=== PATIENT | female | born 1940 ===

== ENCOUNTER 2022-08-24 09:44 | Emergency (ER) | payer MEDICAID, SELFPAY ==
[2022-08-24 09:50] VITALS: BMI 20.1
[2022-08-24 09:54] VITALS: BP 184/94; PULSE 66; RESP 16; O2SAT 98
--- NOTE | 2022-08-24 10:07 | ECG_ITS ---
[facility] Test Date: 2022-08-24 Pat Name: Nicolette Musa Department: Room: Gender: Female Research Assistant Member: : 1940 Requested By: Hunter Smith Order Number: [id number] Portia MD: Ezequiel Warren M.D. Measurements Intervals [place] Rate: 73 P: 77 OR: 136 QRS: 72 QRSD: 89 T: 75 QT: 389 QTc: 430 Interpretive Statements SINUS RHYTHM POSSIBLE LEFT ATRIAL ENLARGEMENT [-0.1mV P-WAVE IN V1/V2] No previous ECG available for comparison Electronically Signed On 08-24-2022 11:06:46 CDT by Ezequiel Warren M.D. [id number]
[2022-08-24] MEDS: hyDRALAzine 20 mg/mL INJ 1 mL 10 MG IVP (10:23)
[2022-08-24] MEDS: enalaprilat 1.25 mg/mL Inj IVP (10:24)
[2022-08-24 10:36] LABS: Basophils % 0.4 %; Eosinophils # 0.1 10^3/uL (0.0-0.8); Eosinophils % 1.3 %; Hematocrit 45.5 % (37.0-47.0); Lymphocytes # 1.5 10^3/uL (0.8-4.8); Lymphocytes % 28.9 %; Mean Corpuscular Hemoglobin 30.7 pg (28.0-34.0); Mean Platelet Volume 10.9 fL (7.4-10.4); Monocytes # 0.4 10^3/uL (0.2-0.9); Monocytes % 7.4 %; Neutrophils # 3.26 10^3/uL (1.8-7.7); Neutrophils % 61.6 %; Nucleated Red Blood Cells % 0 %; Platelet Count 216 10^3/cmm (130-400); Red Blood Count 4.89 10^6/uL (4.1-5.3); Red Cell Distribution Width 12.2 % (12.1-15.1); White Blood Count 5.3 10^3/uL (4.0-10.0)
--- NOTE | 2022-08-24 10:37 | W.ED.GENADLT ---
HPI - General Adult General: Chief complaint: General Medical Stated complaint: high BP, headache Time Seen by Provider: 08/24/22 09:44 Source: patient and family Mode of arrival: ambulatory History of Present Illness: 82-year-old female presents emergency room with a family member. She complaining lightheadedness and dizziness elevated blood pressure. She is not able to speak [place] but her daughter is at the bedside and wishes to treat translate for her. She denies any chest pain abdominal pain or shortness of breath no recent falls no head trauma she is not on any anticoagulants she is not on any antihypertensive she is on medications for her eye in the form of some drops that has not changed recently. No recent cough or cold remedies or decongestants or nasal sprays. No focal neurologic deficits other than headaches and the dizziness no weakness no difficulty speech swallowing or gait. Onset (ago): hour(s) Location: head Severity: moderate Quality: aching Pain Consistency: constant Relieving factors: none Exacerbating factors: none Associated symptoms: Reports headache(s) and nausea; Deny chest pain, confusion, cough, diaphoresis, decreased appetite, dyspnea, fevers/chills, malaise, rash, palpitations, seizures, short of breath, syncope, vomiting or weakness Treatments prior to arrival: none Review of Systems Const: Reports: fatigue; Denies: fever(s), chills, malaise or diaphoresis ENMT: Denies: throat pain, ear or mastoid pain, nasal discharge or nasal congestion Card: Denies: chest pain, palpitations or syncope Resp: Denies: dyspnea GI: Reports: nausea; Denies: abdominal pain or vomiting : Denies: flank pain, difficulty voiding, dysuria, urinary frequency or urinary urgency Musc: Denies: neck pain or back pain Skin/Breast: Denies: rash Neuro: Reports: headache(s); Denies: confusion PFSH ED PFSH: Medical History (Updated 08/25/22 @ 15:49 by Hunter Pool DO) HTN (hypertension) Social History (Updated 08/25/22 @ 15:49 by Hunter Pool DO) Smoking and tobacco status: never smoked Alcohol intake: never Physical Exam Const: COMMON NORMALS: no acute distress GENERAL APPEARANCE: cooperative and comfortable ORIENTATION/CONSCIOUSNESS: Yes awake, Yes oriented to person, Yes oriented to place and Yes oriented to time HENMT: COMMON NORMALS: normocephalic, atraumatic, hearing grossly normal bilaterally, external ears normal, EAC's normal, TM's normal bilaterally, Normal nasal mucous membranes and turbinates present, moist oral mucous membranes and oropharynx normal HEAD & SCALP: normocephalic and atraumatic NOSE: Normal nasal mucous membranes and turbinates present EXTERNAL EAR: Yes external ears normal EXTERNAL AUDITORY CANAL: EAC's normal TYMPANIC MEMBRANE: TM's normal bilaterally Eye: COMMON NORMALS: Equal, round and reactive pupils present, EOMs intact bilaterally, conjunctivae normal and no scleral icterus CONJUNCTIVA: Yes conjunctivae normal PUPIL: Yes Equal, round and reactive pupils present Resp: COMMON NORMALS: normal respiratory effort, No retractions, No use of accessory muscles and clear to auscultation bilaterally AUSCULTATION: clear to auscultation bilaterally Cardio: COMMON NORMALS: regular rate, regular rhythm and No murmurs present (Cardio) RATE: regular rate RHYTHM: regular rhythm GI: COMMON NORMALS: Soft to palpation and No hepatosplenomegaly present AUSCULTATION: Yes normoactive bowel sounds PALPATION: Yes Soft to palpation, No Tenderness to palpation present (GI), No Guarding due to palpation present (GI) and Yes No hepatosplenomegaly present Extremity: COMMON NORMALS: normal to inspection, capillary refill normal, no clubbing, cyanosis or edema, no calf tenderness and no pedal edema Neuro: SENSORIUM/ORIENTATION: Yes oriented to person, Yes oriented to place and Yes oriented to time Skin: COMMON NORMALS: no rashes or lesions noted GENERAL SKIN EXAM: no rashes or lesions noted Course Vital Signs: Vital signs: Vital Signs Pulse Rate 77 08/24/22 13:03 Respiratory Rate 18 08/24/22 11:50 Blood Pressure 117/66 08/24/22 13:03 Pulse Oximetry 98 08/24/22 13:03 Oxygen Delivery Me thod 08/24/22 09:54 [facility] - General Adult Medical Decision Making Labs imaging EKG reviewed there is no evidence of any focal neurologic deficits and think her headache is driven largely by the blood pressure. We did lower blood pressure and that significantly improved her symptoms. She is feeling much better. We will start her on amlodipine 5 mg daily and lisinopril 10 mg daily have her follow-up with her primary care doctor within the next week to reevaluate her blood pressure has any worsening or change symptoms return to the emergency room. Medical Records I reviewed the patient's medical records. Lab Data I reviewed the patient's lab results. : 08/24/22 10:08/24/22 10:[address] 08/24/22 10:38 IMPRESSION: 1. No evidence of intracranial hemorrhage or mass effect. 2. Mild small vessel changes. Moderate parenchymal volume loss. 3. No acute intracranial findings. Laboratory Results WBC 5.3 10^3/uL (4.0-10.0) 08/24/22 10: RBC 4.89 10^6/uL (4.1-5.3) 08/24/22 10: Hgb 15.0 g/dL (11.5-15.3) 08/24/22 10: Hct 45.5 % (37.0-47.0) 08/24/22 10: MCV 93.0 fl (81-99) 08/24/22 10: MCH 30.7 pg (28.0-34.0) 08/24/22 10: MCHC 33.0 g/dL (30.0-36.0) 08/24/22 10: RDW 12.2 % (12.1-15.1) 08/24/22 10: Plt Count 216 10^3/cmm (130-400) 08/24/22 10: MPV 10.9 fL (7.4-10.4) H 08/24/22 10:28 Neut % (Auto) 61.6 % 08/24/22 10:28 Lymph % (Auto) 28.9 % 08/24/22 10:28 [place] % (Auto) 7.4 % 08/24/22 10:28 Eos % (Auto) 1.3 % 08/24/22 10: Baso % (Auto) 0.4 % 08/24/22 10: Neut # (Auto) 3.26 10^3/uL (1.8-7.7) 08/24/22 10:28 Lymph # (Auto) 1.5 10^3/uL (0.8-4.8) 08/24/22 10:28 [place] # (Auto) 0.4 10^3/uL (0.2-0.9) 08/24/22 10:28 Eos # (Auto) 0.1 10^3/uL (0.0-0.8) 08/24/22 10:28 Baso # (Auto) 0.0 10^3/uL (0.0-0.1) 08/24/22 10:28 Nucleated RBC % (auto) 0 % 08/24/22 10:28 Nucleated RBCs # 0.0 /100WBC 08/24/22 10:28 Sodium 140 mmol/L (136-145) 08/24/22 10:28 Potassium 3.9 mmol/L (3.5-5.1) 08/24/22 10:28 Chloride 104 mmol/L (98-107) 08/24/22 10:28 Carbon Dioxide 26 mmol/L (22-29) 08/24/22 10:28 Anion Gap 13.9 (5-19) 08/24/22 10:28 BUN 16 mg/dL (8-23) 08/24/22 10:28 Creatinine 0.5 mg/dL (0.5-0.9) 08/24/22 10:28 GFR Calculation Not Reportable 08/24/22 10:28 Glucose 94 mg/dL (65-115) 08/24/22 10:28 Calculated Osmolality 291 mOsm/kg (285-295) 08/24/22 10:28 Calcium 9.8 mg/dL (8.5-10.5) 08/24/22 10:28 Discharge Plan Discharge Clinical Impression: HTN (hypertension) Prescriptions: New amlodipine 5 mg tablet 5 mg PO DAILY Qty: 30 0RF lisinopril 10 mg tablet 10 mg PO DAILY Qty: 30 0RF No Action dorzolamide-timolol 22.3-6.8 mg/mL drops 1 drp ophthalmic (eye) BID Discharge Orders: Discharge ED (Routine); Ordered 08/24/22 Ordered By: Hunter Pool Discharge Diet: Usual diet Discharge Activity: Increase activity as tolerated Patient Instructions: Opioid Safety, Pain Management Activity Restrictions/Additional Instructions: Recheck with your primary care doctor within the week to reevaluate your blood pressure. If any worsening or change symptoms return to the emergency room Coding Level of Care Code ED Stem Processing Machine Operator for Chg Antoni
--- NOTE | 2022-08-24 10:38 | CT_ITS ---
WS: [id number] CT HEAD TECHNIQUE: Noncontrast CT of the head obtained from the skullbase to the vertex. CLINICAL INFORMATION: Dizziness headache hypertension COMPARISON: None. DLP: 874.[address] scans at [facility] use at least one of these dose optimization techniques: automated e xposure control; mA and/or kV adjustment per patient size (includes targeted exams where dose is matc hed to clinical indication); or iterative reconstruction. FINDINGS: No evidence of intracranial hemorrhage or mass effect. Ventricular system and basal cisterns are suarez nt. Mild small vessel changes with moderate parenchymal volume loss. No extra-axial fluid collections . No evidence of mass or mass effect. Intracranial vascular calcification. Paranasal sinuses and mastoid air cells are well aerated. Retention cysts in the sphenoid sinus. .Nor mal visualized soft tissues. CT/CT head wo con* [id number] IMPRESSION: 1. No evidence of intracranial hemorrhage or mass effect. 2. Mild small vessel changes. Moderate parenchymal volume loss. 3. No acute intracranial findings.
--- NOTE | 2022-08-24 11:04 | PC.NURSE ---
PT PLACED ON CONTINUOUS NIBP, SPO2, AND CM
[2022-08-24 11:08] LABS: Blood Urea Nitrogen 16 mg/dL (8-23); Calcium 9.8 mg/dL (8.5-10.5); Carbon Dioxide 26 mmol/L (22-29); Chloride 104 mmol/L (98-107); Creatinine Clr Calc Pharmacy 42.8105; Glucose 94 mg/dL (65-115); Osmolality Calculated 291 mOsm/kg (285-295); Sodium 140 mmol/L (136-145)
[2022-08-24 11:36] LABS: Anion Gap 13.9 (5-19)
[2022-08-24 11:37] LABS: Potassium 3.9 mmol/L (3.5-5.1)
[2022-08-24 11:50] VITALS: BP 119/61; PULSE 71; RESP 18; O2SAT 99
[2022-08-24 13:03] VITALS: BP 117/66; PULSE 77; O2SAT 98
== END 2022-08-24 13:04 | disposition home or self-care (01) ==
PROVIDERS: Emergency Provider Family Medicine
DX: I10 Essential (primary) hypertension (principal)
CPT/HCPCS: 70450; 80048; 85025; 93005; 96374; 96375; 99285; J0360; J3490

== ENCOUNTER 2023-04-24 07:19 | Emergency (ER) | payer MEDICAID, SELFPAY ==
[2023-04-24 07:29] VITALS: BP 205/121; PULSE 68; RESP 14; TEMP 36.7; O2SAT 98; BMI 20.1
--- NOTE | 2023-04-24 07:39 | ED_ITS ---
HPI - General Adult General: Chief complaint: Recheck/Abnormal Lab/Rx Stated complaint: high blood pressure Time Seen by Provider: 04/24/23 07:27 Source: patient Mode of arrival: ambulatory History of Present Illness: 83-year-old female presents emergency room with report of elevated blood pressure. She is on lisinopril 10 mg daily and amlodipine 5 mg daily. She has not been taking these regularly. Still difficult to get from her or her daughter when the last time she took someone's. They think maybe she took the lisinopril yesterday. She states the amlodipine made her not feel well. She has not any difficulty speech swallowing gait vision etc. He has had some dizziness denies headache no chest pain. Patient only speaks Swedish and her daughter is at the bedside and wishes to interpret for her. Onset (ago): day(s) (2) Relieving factors: none Exacerbating factors: none Associated symptoms: Deny chest pain, confusion, cough, diaphoresis, decreased appetite, dyspnea, fevers/chills, headache(s), malaise, nausea, rash, palpitations, seizures, short of breath, syncope, vomiting or weakness Review of Systems Const: Denies: fever(s), chills, malaise or diaphoresis Card: Denies: chest pain, palpitations or syncope Resp: Denies: dyspnea GI: Denies: abdominal pain, nausea or vomiting : Denies: dysuria, urinary frequency or urinary urgency Musc: Denies: neck pain or back pain Skin/Breast: Denies: rash or pruritus Neuro: Denies: headache(s) or confusion PFS ED PFSH: Medical History HTN (hypertension) Social History Smoking and tobacco status: never smoked Alcohol intake: never Physical Exam Const: GENERAL APPEARANCE: cooperative and comfortable ORIENTATION/CO NSCIOUSNESS: Yes awake HENMT: COMMON NORMALS: normocephalic, atraumatic and hearing grossly normal bilaterally HEAD & SCALP: normocephalic and atraumatic Resp: COMMON NORMALS: normal respiratory effort, No retractions, No use of accessory muscles and clear to auscultation bilaterally AUSCULTATION: clear to auscultation bilaterally Cardio: COMMON NORMALS: regular rate, regular rhythm and No murmurs present (Cardio) RATE: regular rate RHYTHM: regular rhythm GI: COMMON NORMALS: Soft to palpation and No hepatosplenomegaly present AUSCULTATION: Yes normoactive bowel sounds PALPATION: Yes Soft to palpation, No Tenderness to palpation present (GI), No Guarding due to palpation present (GI) and Yes No hepatosplenomegaly present Extremity: COMMON NORMALS: normal to inspection, capillary refill normal, no clubbing, cyanosis or edema, no calf tenderness and no pedal edema Skin: COMMON NORMALS: no rashes or lesions noted GENERAL SKIN EXAM: no rashes or lesions noted Course Vital Signs: Vital signs: Vital Signs Temperature 98.0 F 04/24/23 07:29 Pulse Rate 70 04/24/23 08:12 Respiratory Rate 18 04/24/23 08:12 Blood Pressure 104/52 04/24/23 08:12 Pulse Oximetry 99 04/24/23 08:12 Oxygen Delivery Me thod Room Air 04/24/23 08:12 MDM - General Adult Medical Decision Making Labs and imaging reviewed EKG shows no acute changes chest x-ray shows hyperexpansion consistent with COPD but no acute findings. Blood pressure improved with medications given. Patient is feeling somewhat better. Will discharge home decrease her amlodipine to 2.5 p.o. daily add metoprolol 25 p.o. twice daily and increase lisinopril to 20 mg daily. Recommend daily blood pressure monitoring and recheck with primary care in 5 to 7 days return if is further problems. Discussed with family member at the bedside. She expresses understanding. Medical Records I reviewed the patient's medical records. Lab Data I reviewed the patient's lab results. 04/24/23 07:33 04/24/23 07:33 Laboratory Results WBC 5.3 10^3/uL (4.0-10.0) 04/24/23 07:33 RBC 4.56 10^6/uL (4.1-5.3) 04/24/23 07:33 Hgb 13.7 g/dL (11.5-15.3) 04/24/23 07:33 Hct 42.4 % (37.0-47.0) 04/24/23 07:33 MCV 93.0 fl (81-99) 04/24/23 07:33 MCH 30.0 pg (28.0-34.0) 04/24/23 07:33 MCHC 32.3 g/dL (30.0-36.0) 04/24/23 07:33 RDW 12.1 % (12.1-15.1) 04/24/23 07:33 Plt Count 202 10^3/cmm (130-400) 04/24/23 07:33 MPV 10.7 fL (7.4-10.4) H 04/24/23 07:33 Neut % (Auto) 48.2 % 04/24/23 07:33 Lymph % (Auto) 39.0 % 04/24/23 07:33 [place] % (Auto) 10.3 % 04/24/23 07:33 Eos % (Auto) 1.5 % 04/24/23 07:33 Baso % (Auto) 0.8 % 04/24/23 07:33 Neut # (Auto) 2.54 10^3/uL (1.8-7.7) 04/24/23 07:33 Lymph # (Auto) 2.1 10^3/uL (0.8-4.8) 04/24/23 07:33 [place] # (Auto) 0.5 10^3/uL (0.2-0.9) 04/24/23 07:33 Eos # (Auto) 0.1 10^3/uL (0.0-0.8) 04/24/23 07:33 Baso # (Auto) 0.0 10^3/uL (0.0-0.1) 04/24/23 07:33 Nucleated RBC % (auto) 0 % 04/24/23 07:33 Nucleated RBCs # 0.0 /100WBC 04/24/23 07:33 Sodium 142 mmol/L (136-145) 04/24/23 07:33 Potassium 4.4 mmol/L (3.5-5.1) 04/24/23 07:33 Chloride 104 mmol/L (98-107) 04/24/23 07:33 Carbon Dioxide 28 mmol/L (22-29) 04/24/23 07:33 Anion Gap 14.4 (5-19) 04/24/23 07:33 BUN 15 mg/dL (8-23) 04/24/23 07:33 Creatinine 0.6 mg/dL (0.5-0.9) 04/24/23 07:33 GFR Calculation Not Reportable 04/24/23 07:33 Glucose 76 mg/dL (65-115) 04/24/23 07:33 Calculated Osmolality 294 mOsm/kg (285-295) 04/24/23 07:33 Calcium 10.0 mg/dL (8.5-10.5) 04/24/23 07:33 Discharge Plan Discharge Patient Disposition: Home Clinical Impression: HTN (hypertension) Condition: Stable Prescriptions: New metoprolol tartrate 25 mg tablet 25 mg PO BID Qty: 60 0RF lisinopril 20 mg tablet 20 mg PO DAILY Qty: 30 0RF Changed amlodipine 5 mg tablet 2.5 mg PO DAILY Qty: 30 0RF Discontinued lisinopril 10 mg tablet 10 mg PO DAILY Qty: 30 0RF No Action dorzolamide-timolol 22.3-6.8 mg/mL drops 1 drp ophthalmic (eye) BID Discharge Orders: Discharge ED (Routine); Ordered 04/24/23 Ordered By: Hunter Pool Referrals: Reyna Cowart APN [Primary Care Provider] - Patient Instructions: Hypertension (ED), Opioid Safety, Pain Management Activity Restrictions/Additional Instructions: You are seen today for hypertension. Blood pressure responded well to the medications given recommend that you follow-up with your primary care doctor within the week to recheck your blood pressure. Also recommend you keep a daily log and take that with you to your next doctor's appointment. We asked that you increase your lisinopril to 20 mg daily decrease your amlodipine to 2.5 daily and start metoprolol 25 mg 1 p.o. twice daily you are given the first dose in the emergency room. Coding Level of Care Code ED Blockmason for Desiree Corrales
[2023-04-24 07:41] LABS: Basophils % 0.8 %; Eosinophils # 0.1 10^3/uL (0.0-0.8); Eosinophils % 1.5 %; Hematocrit 42.4 % (37.0-47.0); Hemoglobin 13.7 g/dL (11.5-15.3); Lymphocytes # 2.1 10^3/uL (0.8-4.8); Mean Corpuscular HGB Conc 32.3 g/dL (30.0-36.0); Mean Platelet Volume 10.7 fL (7.4-10.4); Monocytes # 0.5 10^3/uL (0.2-0.9); Monocytes % 10.3 %; Neutrophils # 2.54 10^3/uL (1.8-7.7); Neutrophils % 48.2 %; Nucleated Red Blood Cells % 0 %; Platelet Count 202 10^3/cmm (130-400); Red Blood Count 4.56 10^6/uL (4.1-5.3); Red Cell Distribution Width 12.1 % (12.1-15.1); White Blood Count 5.3 10^3/uL (4.0-10.0)
--- NOTE | 2023-04-24 07:46 | ECG_ITS ---
[facility] Test Date: 2023-04-24 Pat Name: Nicolette Musa Department: Room: Gender: Female Graphics Artist: : 1940 Requested By: Hunter Smith Order Number: [id number] Portia MD: Neeta Kendall M.D. Measurements Intervals [place] Rate: 60 P: 69 VT: 144 QRS: 64 QRSD: 77 T: 66 QT: 395 QTc: 396 Interpretive Statements SINUS RHYTHM POSSIBLE LEFT ATRIAL ENLARGEMENT [-0.1mV P-WAVE IN V1/V2] Compared to ECG 08/24/2022 10:50:43 No significant changes Electronically Signed On 04-24-2023 16:24:25 CDT by Neeta Kendall M.D. [id number]
[2023-04-24] MEDS: amlodipine 5 mg Tablet PO (07:47)
[2023-04-24] MEDS: metoprolol tartrate 25 mg Tablet PO (07:47)
[2023-04-24] MEDS: hyDRALAzine 20 mg/mL INJ 1 mL IVP (07:48)
[2023-04-24] MEDS: labetalol 5 mg/mL SDV 20mL 10 MG IVP (07:50)
[2023-04-24 07:57] LABS: Anion Gap 14.4 (5-19); Blood Urea Nitrogen 15 mg/dL (8-23); Carbon Dioxide 28 mmol/L (22-29); Chloride 104 mmol/L (98-107); Glucose 76 mg/dL (65-115); Osmolality Calculated 294 mOsm/kg (285-295); Potassium 4.4 mmol/L (3.5-5.1); Sodium 142 mmol/L (136-145)
--- NOTE | 2023-04-24 08:05 | XR_ITS ---
WS: [id number] EXAMINATION: XR chest 1V portable [id number] REASON FOR EXAM: dyspnea/cough COMPARISON: None available. ORDER DATE: 04/24/2023 8:10 AM TECHNIQUE: A single, portable frontal chest x-ray was obtained. X-RAY FINDINGS: The lungs are clear of infiltrate with hyperinflation. Pleural spaces are clear. No pleural effusions or pneumothorax. Cardiomediastinal silhouette is unremarkable except for atherosclerotic aortic change. No evidence fo r pulmonary edema. Soft tissue and osseous structures are unremarkable. No tubes or lines are present. XR/XR chest 1V portable [id number] IMPRESSION: Suspect generalized emphysema but may be simple hyperinflation. Clinical correl ation suggested.
[2023-04-24 08:12] VITALS: BP 104/52; PULSE 70; RESP 18; O2SAT 99
[2023-04-24 08:24] VITALS: BP 104/52; PULSE 42; O2SAT 98
--- NOTE | 2023-04-24 08:24 | PC.NURSE ---
holding dc, going to observe pt due to change in vital signs
[2023-04-24] MEDS: sodium chloride 0.9% 500 ML IV (08:37)
[2023-04-24 09:17] VITALS: BP 96/47; PULSE 72; RESP 18; O2SAT 99
[2023-04-24 10:03] VITALS: BP 91/48; PULSE 79; RESP 16; O2SAT 99
== END 2023-04-24 10:12 | disposition home or self-care (01) ==
PROVIDERS: Emergency Provider Family Medicine; PCP Nurse Practitioner Family
DX: I10 Essential (primary) hypertension (principal)
CPT/HCPCS: 71045; 80048; 85025; 93005; 96361; 96374; 96375; 99285; J0360; J3490; J7040

== ENCOUNTER 2024-04-21 08:14 | Emergency (ER) | payer MEDICAID, SELFPAY ==
[2024-04-21 08:39] VITALS: BP 202/91; PULSE 62; RESP 18; TEMP 36.8; O2SAT 97; BMI 17.5
--- NOTE | 2024-04-21 08:46 | W.ED.WOUNDLC ---
HPI - Wound/Laceration General: Chief Complaint: Wound/Laceration Stated Complaint: right leg dog bite Time Seen by Provider: 04/21/24 08:19 Source: patient and family Mode of arrival: ambulatory History of Present Illness: 84-year-old female presents emergency room with laceration on the dorsum of her right foot. She stuck her foot in between 2 dogs that were fighting and got bit she is unsure which dog bit her foot she is unsure of the dog's rabies status or her own tetanus status. Wound gaping and was bleeding earlier. Onset (ago): minute(s) Extremity Location: Right: foot Place: home Patient tetanus UTD: No Context: other (Dog bite) [facility] ED PFSH: Medical History HTN (hypertension) Social History Smoking and tobacco/nicotine status: never used tobacco/nicotine Alcohol intake: never Physical Exam Narrative: EXAM NARRATIVE: Examination dorsum right foot there is a approximately 4 inch long gaping laceration. No active bleeding. Neurovascularly right foot is intact. None of the underlying structures are damaged no tendon damage patient able to flex and extend at the ankle and at the toes without any difficulty. Procedures Laceration Laceration 1: Site: lower extremity Side (If applicable): right (Foot) Size (cm): 10 Description: linear Depth: simple, single layer Local Anesthetic: lidocaine 1% and with epi Amount of anesthesia used (mL): 4 Pre-repair: wound explored, irrigated extensively (After local anesthesia wound irrigated and cleansed aggressively), deep structures intact and wound margins revised (Small amount of abraded tissue removed from the distal edge of the wound) Skin layer closed with: nylon Size (cm): 4-0 Number of sutures: 1 Technique: running Course Vital Signs: Vital signs: Vital Signs Temperature 98.2 F 04/21/24 08:39 Pulse Rate 54 L 04/21/24 10:38 Respiratory Rate 04/21/24 10:38 Blood Pressure 162/82 04/21/24 10:38 Pulse Oximetry 97 04/21/24 10:38 Oxygen Delivery Me thod Room Air 04/21/24 08:39 MDM - Wound/Laceration Medical Decision Making Dog bite. Wound closed with running locking suture of 4-0 nylon patient tolerated well with good approximation and cosmesis and hemostasis Rabies immunoglobulin vaccine given. Rabies immunoglobulin infiltrated around the wound total of 2.9 mL was used 1.9 mL infiltrated around the wound and 1 mL infiltrated injected IM in the right deltoid. Patient tolerated well. Rabies vaccine schedule given to the patient. Laceration instructions given apply topical antibiotic ointment also start on Augmentin 875 twice daily. Wound was loosely closed because of the amount of gaping and bleeding present. Also start her on Augmentin. Differential Diagnosis Likely laceration Medical Records I reviewed the patient's medical records. Lab Data I reviewed the patient's lab results. No radiology studies performed this visit Discharge Plan Discharge Patient Disposition: Home Clinical Impression: Laceration, Dog bite of dorsum of foot, Need for post exposure prophylaxis for rabies Condition: Stable Prescriptions: New clindamycin HCl 300 mg capsule 300 mg PO QID 7 Days Qty: 28 0RF mupirocin 2 % ointment 1 applic topical BID Qty: 15 0RF No Action dorzolamide-timolol 22.3-6.8 mg/mL drops 1 drp ophthalmic (eye) BID metoprolol tartrate 25 mg tablet 25 mg PO BID Qty: 60 0RF lisinopril 20 mg tablet 20 mg PO DAILY Qty: 30 0RF amlodipine 5 mg tablet 2.5 mg PO DAILY Qty: 30 0RF Discharge Orders: Discharge ED (Routine); Ordered 04/21/24 Ordered By: Hunter Pool Referrals: Reyna Cowart APN [Primary Care Provider] - Discharge Diet: Usual diet Discharge Activity: Resume usual activity Patient Instructions: Rabies Vaccine (By injection), Animal Bite (ED), Laceration (ED), Rabies (ED), Opioid Safety, Pain Management Activity Restrictions/Additional Instructions: Thank you for choosing [facility] for your healthcare needs today. It is very important that you follow up as instructed or that you return to the Emergency Department should you have concerns or if your condition changes or worsens in any way. You were seen today for a dog bite. Laceration was closed with sutures that should be removed in approximately 10 days. You are given rabies immunoglobulin and rabies vaccine. At discharge she will be given the remainder of the vaccination schedule. Coding Level of Care Code ED Professor Of Education for Desiree Corrales
[2024-04-21] MEDS: tetanus-diphtheria tox (adult) 0.5 mL SYRINGE IM (08:51)
[2024-04-21] MEDS: rabies vaccine 2.5 unit SDV IM (09:11)
--- NOTE | 2024-04-21 09:50 | PC.NURSE ---
PROVIDER TO ADMINISTER RABIES IMMUNE GLOBULIN PER NURSE UNIT CONTROL WORKER.
[2024-04-21] MEDS: rabies IG 300 unit/mL SDV 1 mL 870 UNIT IM (10:30)
[2024-04-21 10:38] VITALS: BP 162/82; PULSE 54; RESP 17; O2SAT 97
== END 2024-04-21 10:39 | disposition home or self-care (01) ==
PROVIDERS: Emergency Provider Family Medicine; PCP Nurse Practitioner Family
DX: S91.351A Open bite, right foot, initial encounter (principal); W54.0XXA Bitten by dog, initial encounter; Z29.14 Encounter for prophylactic rabies immune globulin; Z20.3 Contact with and (suspected) exposure to rabies; Z23 Encounter for immunization; I10 Essential (primary) hypertension
CPT/HCPCS: 12044; 90375; 90471; 90675; 90714; 96372; 99283

== ENCOUNTER 2024-04-28 11:00 | Oncology outpatient (recurring) (ONCR) | payer MEDICAID, SELFPAY ==
[2024-04-24] MEDS: rabies vaccine 2.5 unit SDV IM (11:16)
[2024-04-24 11:22] VITALS: BP 99/61; PULSE 64; RESP 16; TEMP 36.4; O2SAT 95
[2024-04-28] MEDS: rabies vaccine 2.5 unit SDV IM (11:39)
== END 2024-05-04 23:59 | disposition home or self-care (01) ==
PROVIDERS: PCP Nurse Practitioner Family; Visit Provider Family Medicine
DX: Z20.3 Contact with and (suspected) exposure to rabies (principal); Z23 Encounter for immunization; S91.351A Open bite, right foot, initial encounter; W54.0XXA Bitten by dog, initial encounter; Z53.9 Procedure and treatment not carried out, unspecified reason
CPT/HCPCS: 90471; 90675

== ENCOUNTER 2024-05-05 10:40 | Oncology outpatient (recurring) (ONCR) | payer MEDICAID, SELFPAY ==
[2024-05-05] MEDS: rabies vaccine 2.5 unit SDV IM (11:36)
[2024-05-05 12:49] VITALS: BP 112/64; PULSE 66; RESP 16; TEMP 36.6; O2SAT 98
== END 2024-06-04 23:59 | disposition home or self-care (01) ==
PROVIDERS: PCP Nurse Practitioner Family; Visit Provider Family Medicine
DX: Z20.3 Contact with and (suspected) exposure to rabies (principal); Z23 Encounter for immunization; S91.351A Open bite, right foot, initial encounter; W54.0XXA Bitten by dog, initial encounter
CPT/HCPCS: 90471; 90675

== ENCOUNTER 2025-08-11 07:57 | Outpatient (CLI) | payer MEDICAID, SELFPAY ==
--- NOTE | 2025-08-11 08:07 | US_ITS ---
WS: [id number] RIGHT UPPER QUADRANT ULTRASOUND HISTORY: ELEVATED LIVER ENZYMES COMPARISON: None available. Liver: 11.4 cm in length. Normal size liver and echogenicity. No bile duct dilatation or mass. Portal Vein: Normal hepatopetal flow with monophasic waveform. Gallbladder: Normally distended with stones and sludge in the lumen. No pericholecystic fluid. CBD: 0.4 cm Pancreas: Normal size and echogenicity. Right kidney: 7.7 cm in length. Moderate atrophy RIGHT kidney. Mild cortical thinning. No obstruction or mass. Aorta and IVC: Atherosclerotic plaque within the aorta. No ascites. US/US abdomen limited [id number] IMPRESSION: 1. Small gravel-like stones and sludge in the gallbladder. No evidence for acu te cholecystitis. 2. Normal common bile duct. 3. Moderate atrophy RIGHT kidney.
== END 2025-08-11 07:58 | disposition home or self-care (01) ==
LOC: RAD 07:58
PROVIDERS: PCP Nurse Practitioner Family; Visit Provider Internal Medicine
DX: R74.8 Abnormal levels of other serum enzymes (principal)
CPT/HCPCS: 76705